=== PATIENT | female | born 1990 | race Caucasian/White ===

== ENCOUNTER 2024-08-31 16:24 | Emergency (ER) | payer BC ==
[~2024-08-31] VITALS: Ht 162.6 cm; Wt 105.8 kg
[2024-08-31 16:35] VITALS: BP 162/89; PULSE 114; RESP 18; TEMP 97.7; O2SAT 98
[2024-08-31] MEDS ORDERED: HYDR-3965 PO (17:14)
== END 2024-08-31 17:28 | disposition home or self-care (01) ==
LOC: ER 16:25 → EDSEX 16:25 → ER 17:28
DX: N80.9 Endometriosis, unspecified (principal)
CPT/HCPCS: 99283